=== PATIENT | female | born 1965 | race Caucasian/White ===

== ENCOUNTER 2016-05-28 12:29 | Emergency (ER) | payer OTHER ==
[2016-05-28] MEDS ORDERED: HYDROcodone/Acetaminophen 10/325 mg Tablet ONE (12:38)
[2016-05-28] MEDS ORDERED: Ibuprofen 800 MG TAB ONE (12:38)
== END 2016-05-28 12:55 | disposition home or self-care (01) ==
LOC: BURERS 12:29
DX: S86.811A Strain of other muscle(s) and tendon(s) at lower leg level, right leg, initial encounter (principal); I10 Essential (primary) hypertension; J45.909 Unspecified asthma, uncomplicated; Z87.891 Personal history of nicotine dependence; X58.XXXA Exposure to other specified factors, initial encounter

== ENCOUNTER 2016-08-16 11:29 | Outpatient (CLI) | payer OTHER ==
[2016-08-16 13:11] LABS: Amphetamine Detected (NotDetected); Barbiturates Screen Not Detected (NotDetected); Benzodiazepine Screen Not Detected (NotDetected); Cocaine Metabolite Screen Not Detected (NotDetected); Medtox Control Line Valid? VALID (VALID); Methadone Not Detected (NotDetected); Methamphetamine Detected (NotDetected); Opiate Screen Detected (NotDetected); Oxycodone Screen Not Detected (NotDetected); Phencyclidine (PCP) Not Detected (NotDetected); THC/Cannabinoid Screen Not Detected (NotDetected); Tricyclic Screen Not Detected (NotDetected)
== END 2016-08-16 11:30 | disposition home or self-care (01) ==
LOC: HPCALD 11:29
PROVIDERS: ATTEND Physician Assistant
DX: S46.812D Strain of other muscles, fascia and tendons at shoulder and upper arm level, left arm, subsequent encounter (principal)
CPT/HCPCS: 80306

== ENCOUNTER 2018-05-02 22:43 | Emergency (ER) | payer SELFPAY ==
[2018-05-02] MEDS ORDERED: Fluorescein Opthalmic Strip ONE (23:01)
[2018-05-02] MEDS ORDERED: Tobramycin Sulfate 0.3% Ophth Susp 5 ml Bottle ONE (23:09)
[2018-05-02] MEDS ORDERED: Dexamethasone 4 MG TAB ONE (23:20)
[2018-05-02] MEDS ORDERED: Azithromycin 250 MG TAB ONE (23:20)
== END 2018-05-02 23:34 | disposition home or self-care (01) ==
LOC: BURERS 22:43
DX: J20.9 Acute bronchitis, unspecified (principal); H18.821 Corneal disorder due to contact lens, right eye; J45.909 Unspecified asthma, uncomplicated; I10 Essential (primary) hypertension; F17.200 Nicotine dependence, unspecified, uncomplicated; Z79.51 Long term (current) use of inhaled steroids; Z79.899 Other long term (current) drug therapy
CPT/HCPCS: 99283; J8540

== ENCOUNTER 2019-07-01 20:29 | Emergency (ER) | payer SELFPAY ==
[2019-07-01] MEDS ORDERED: Adacel (T-DAP) 0.5 ML SYRINGE ONE (21:08)
[2019-07-01] MEDS ORDERED: Clindamycin 150 MG CAP ONE (21:17)
== END 2019-07-01 21:21 | disposition home or self-care (01) ==
LOC: BURERS 20:29
DX: S81.831A Puncture wound without foreign body, right lower leg, initial encounter (principal); S81.811A Laceration without foreign body, right lower leg, initial encounter; I10 Essential (primary) hypertension; J45.909 Unspecified asthma, uncomplicated; F17.210 Nicotine dependence, cigarettes, uncomplicated; W26.8XXA Contact with other sharp object(s), not elsewhere classified, initial encounter; Z79.899 Other long term (current) drug therapy; Z23 Encounter for immunization
CPT/HCPCS: 90471; 90715